=== PATIENT | female | born 1965 | race Hispanic/Latino ===

== ENCOUNTER → 2023-03-27 | Outpatient (CLI) | payer OTHER ==
[~2023-03-27] MED LIST: CEPH500B PO; PHEN-847 PO; POTA-187 PO
== END | disposition home or self-care (01) ==
LOC: RAH 08:11
PROVIDERS: ATTEND Family Medicine
DX: Z13.6 Encounter for screening for cardiovascular disorders (principal)
CPT/HCPCS: 75571

== ENCOUNTER 2024-08-15 06:20 | Day surgery (SDC) | payer BC ==
[2024-08-13 13:01] LABS: BASOPHILS # (AUTO) 0.02 K/uL (0.00-0.20); BASOPHILS % (AUTO) 0.4 % (0.0-5.0); EOSINOPHILS # (AUTO) 0.14 K/uL (0.00-0.70); EOSINOPHILS % (AUTO) 2.5 % (0.0-8.0); HEMATOCRIT 40.3 % (36-48); IMMATURE GRANULOCYTE ABSOLUTE 0.01 K/uL (0-1); LYMPHOCYTES # (AUTO) 1.9 K/uL (1.0-4.8); LYMPHOCYTES % (AUTO) 33.9 % (21.0-51.0); MEAN CORPUSCULAR HEMOGLOBIN 32.5 pg (27.0-33.0); MEAN CORPUSCULAR HGB CONC 33.5 g/dL (32.0-36.0); MEAN CORPUSCULAR VOLUME 97.1 fL (79-99); MONOCYTES # (AUTO) 0.5 K/uL (0.1-1.0); MONOCYTES % (AUTO) 9.2 % (3.0-13.0); NEUTROPHILS # (AUTO) 3.1 K/uL (1.8-7.7); NEUTROPHILS % (AUTO) 53.8 % (40.0-77.0); PLATELET COUNT (AUTO) 193 K/uL (130-400); RED BLOOD CELL COUNT(AUTO) 4.15 MIL/uL (4.00-5.50); RED CELL DISTRIBUTION WIDTH 12.5 % (11.0-15.5); WHITE BLOOD COUNT (AUTO) 5.7 K/uL (4.8-10.8)
[2024-08-13 13:10] VITALS: BP 143/81; PULSE 60; RESP 18; TEMP 97.7
[2024-08-13 13:10] LABS: CREATININE 0.9 mg/dL (0.5-1.0)
[2024-08-13 14:03] LABS: PARTIAL THROMBOPLASTIN TIME 29.2 SEC (26.3-35.5)
[2024-08-13 14:15] LABS: INR 0.98 (0.85-1.15); PROTHROMBIN TIME 10.6 SEC (9.6-11.6)
[2024-08-15] VITALS (16 sets, daily range): BP systolic 102–142; BP diastolic 55–83; PULSE 62–89; RESP 15–18; TEMP 96.9–97.5
[~2024-08-15] VITALS: Ht 152.4 cm; Wt 57.3 kg
[~2024-08-15 06:20] MED LIST changes: +ACET-2079 PO; +AMLO-257 PO; -CEPH500B PO; +LOSA100T59 PO; -PHEN-847 PO; -POTA-187 PO; +TIRZ5PEN SQ
[2024-08-15] MEDS: DEXTROSE 50%-WATER 50 ML DISP.SYRIN IV ONE (07:26)
[2024-08-15] MEDS ORDERED: 0.9%NACL 1000ML 1,000 ML IV ONE (07:36)
[2024-08-15] MEDS ORDERED: BUPIvacaine/PF 0.5% 30ML VIAL ONE (08:15)
[2024-08-15] MEDS ORDERED: proPOFol 10 MG/ML 20ML VIAL IV ONE (08:16)
[2024-08-15] MEDS ORDERED: MIDAZOLAM HCL 1 MG/ML 2ML VIAL ONE (08:16)
[2024-08-15] MEDS ORDERED: rocuRONium bROMide 10MG/1ML 5ML VL ONE ×2 (08:17→11:19)
[2024-08-15] MEDS ORDERED: FENTanyl CITRate PF 50 MCG/1 ML 2ML VIAL ONE (08:17)
[2024-08-15] MEDS ORDERED: LIDOCAINE PF 100MG/5ML (2%) SYRINGE 5ML ONE (08:19)
[2024-08-15] MEDS ORDERED: ROPivacaine 0.5% 5MG/ML 30ML ONE (08:28)
[2024-08-15] MEDS ORDERED: HYDR-4060 PO (08:43)
[2024-08-15] MEDS ORDERED: phenylEPHRINE HCL 10 MG/ML 1ML VIAL IV ONE (08:55)
[2024-08-15] MEDS ORDERED: ePHEDrine SULFate 50 MG/ML AMPULE ONE (08:58)
[2024-08-15] MEDS ORDERED: EPINEPHrine PF 1MG (1:1,000) 1 MG/ML AMP ONE (09:12)
[2024-08-15] MEDS: ceFAZolin SODIUM 2 GM VIAL ONE (09:20)
[2024-08-15] MEDS: EPINEPHrine 1 MG/ML 30ML VIAL IJ ONE (09:49)
[2024-08-15] MEDS ORDERED: GLYCOPYRROLATE 0.2 MG/ML 5 ML VIAL ONE (11:53)
[2024-08-15] MEDS ORDERED: NEOSTIGMINE METHYLSULFATE 1MG/ML IV ONE (11:53)
== END 2024-08-15 13:49 | disposition home or self-care (01) ==
LOC: DAH 06:20
PROVIDERS: ATTEND Student in an Organized Health Care Education/Training Program
DX: M75.122 Complete rotator cuff tear or rupture of left shoulder, not specified as traumatic (principal); M75.22 Bicipital tendinitis, left shoulder; M66.812 Spontaneous rupture of other tendons, left shoulder; M94.212 Chondromalacia, left shoulder; M65.812 Other synovitis and tenosynovitis, left shoulder; M25.812 Other specified joint disorders, left shoulder; I10 Essential (primary) hypertension; E11.9 Type 2 diabetes mellitus without complications; E78.5 Hyperlipidemia, unspecified; K21.9 Gastro-esophageal reflux disease without esophagitis; Z90.49 Acquired absence of other specified parts of digestive tract; Z98.891 History of uterine scar from previous surgery; Z98.890 Other specified postprocedural states; Z82.49 Family history of ischemic heart disease and other diseases of the circulatory system; Z83.3 Family history of diabetes mellitus; Z82.61 Family history of arthritis; Z82.3 Family history of stroke; Z79.01 Long term (current) use of anticoagulants; Z79.899 Other long term (current) drug therapy
CPT/HCPCS: 80048; 84703; 85025; 85610; 85730; 36415; 29827; 29826; 29828; 64415; 82948 ×3; A4663; J7030 ×2; J3010; J0171 ×2; J7070; J3490 ×4; J2001; J2250; J2704; J2710; J2795; J2371; J0690; A6223; A4930; A4649; C1713 ×2; A5120; A4215; A4213; A4222; A4221; A4216; A4223 ×2; A4600; J0665